=== PATIENT | female | born 1975 | race American Indian/Alaskan Native ===

== ENCOUNTER 2021-11-03 22:07 | Emergency (ER) | payer BC, OTHER ==
[2021-11-03] MEDS ORDERED: KETOROLAC 30 MG/1 ML INJ IV ONE (22:15)
--- NOTE | 2021-11-03 22:18 | Emergency Department Report ---
ED General Adult HPI - General Stated complaint: MILAD LATERAL LEG PAIN Time Seen by Provider: 11/03/21 22:14 - History of Present Illness Initial comments: Patient presents by EMS secondary to right leg pain. She states that she started having right leg pain today in the medial aspect of the thigh. This is just proximal to the knee. This is different than what she has had from her legs before. She describes this as a tightness and cramping sensation. She reported it was severe. She tried to stand up and that made the pain worse. She called an ambulance because she thought that there was something wrong. Patient mitts that she has had problems with her legs before. She has been tested for multiple sclerosis. She was treated for fibromyalgia. She states that she really has not been having problems in a while until today. She does admit that she was out at a dinner today. She does not remember hurting herself or injuring her leg in any way. Patient also states that she just has not felt well. She states she just does not feel good and feels like there is something wrong. She has had problems with potassium before. She is never had a DVT or PE. There is no family history of DVT. - Related Data Previous Rx's Medication Instructions Recorded Last Taken Type metFORMIN [Glucophage] 500 mg PO BID #20 tablet 09/14/13 Unknown Rx HYDROcodone/APAP 5-325 [[place] 1 each PO Q6HR PRN #14 tablet 09/20/14 Unknown Rx 5-325 mg TAB] Metaxalone [Skelaxin] 800 mg PO TID #9 tablet 11/04/21 Unknown Rx Allergies Allergy/AdvReac Type Severity Reaction Status Date / Time No Known Allergies Allergy Unverified 09/14/13 08:41 ED Review of Systems ROS: Stated complaint: MILAD LATERAL LEG PAIN Other details as noted in HPI Comment: All other systems reviewed and negative Constitutional: denies: fever Eyes: denies: eye pain ENT: denies: throat pain Respiratory: denies: cough Cardiovascular: denies: chest pain Endocrine: denies: unexplained weight loss Gastrointestinal: denies: abdominal pain Genitourinary: denies: dysuria Musculoskeletal: denies: back pain Skin: denies: rash Neurological: denies: headache Hematological/Lymphatic: denies: easy bruising ED Past Medical Hx - Past Medical History Hx Hypertension: Yes Hx Diabetes: Yes - Surgical History Hx Cholecystectomy: Yes - Family History Family history: hypertension - Social History Smoking Status: Never Smoker Substance Use Type: None - Medications Home Medications: Home Medications Medication Instructions Recorded Confirmed Last Taken Type metFORMIN [Glucophage] 500 mg PO BID #20 tablet 09/14/13 Unknown Rx HYDROcodone/APAP 5-325 [[place] 1 each PO Q6HR PRN #14 tablet 09/20/14 Unknown Rx 5-325 mg TAB] Metaxalone [Skelaxin] 800 mg PO TID #9 tablet 11/04/21 Unknown Rx ED Physical Exam - General Limitations: No Limitations, Other (Pulse ox noted and normal per EMS) General appearance: alert, in no apparent distress, anxious - Head Head exam: Present: atraumatic, normocephalic - Eye Eye exam: Present: normal appearance, EOMI. Absent: scleral icterus - ENT ENT exam: Present: normal orophraynx, normal external ear exam - Neck Neck exam: Present: normal inspection. Absent: meningismus - Respiratory Respiratory exam: Present: normal lung sounds bilaterally. Absent: respiratory distress - Cardiovascular Cardiovascular Exam: Present: regular rate, normal rhythm - GI/Abdominal GI/Abdominal exam: Present: soft. Absent: tenderness - Extremities Exam Extremities exam: Present: normal capillary refill, other (Tenderness along the medial aspect of the right distal thigh. No edema.). Absent: calf tenderness - Back Exam Back exam: Absent: CVA tenderness (R), CVA tenderness (L) - Neurological Exam Neurological exam: Present: alert, oriented X3, CN II-XII intact. Absent: motor sensory deficit - Psychiatric Psychiatric exam: Present: normal mood, anxious - Skin Skin exam: Present: warm, dry ED Course Vital Signs 11/03/21 11/03/21 23:51 23:53 Pulse Rate 98 H Respiratory 18 Rate Blood Pressure 139/87 [Left] O2 Sat by Pulse 97 97 Oximetry - Reevaluation(s) Reevaluation #1: 11/03/21 22:17 EMS was met. Labs were ordered. Reevaluation #2: 11/04/21 00:16 Labs are noted and the patient was discharged. ED Medical Decision Making - Lab Data Result diagrams: 11/03/21 23:05 11/03/21 23:05 - Medical Decision Making Patient presented secondary to right leg pain but had myriad other complaints and symptoms that were subacute to chronic. Patient did not have any profound electrolyte derangements to account for pain. She had no DVT risk factor. Well score was low. D-dimer was negative. I do not believe requires ultrasound. She did not have chest pain or dyspnea. There is no hypoxia. I am not concerned for pulmonary embolism. She was treated symptomatically and referred for outpatient evaluation. Critical Care Time: No Critical care attestation.: If time is entered above; I have spent that time in minutes in the direct care of this critically ill patient, excluding procedure time. ED Disposition Clinical Impression: Right leg pain Disposition: HOME / SELF CARE / HOMELESS Is pt being admited?: No Condition: Stable Instructions: How to Use Cold Therapy, Pain Without a Known Cause Additional Instructions: Drink plenty water. Return for problems. Follow-up with your regular doctor through [facility]. Continue home medication. Prescriptions: Metaxalone [Skelaxin] 800 mg PO TID #9 tablet Referrals: PRIMARY [facility] [Referring] - 3-5 Days
[2021-11-03 23:25] LABS: Hematocrit 42.5 % (30.3-42.9); Mean Corpuscular HGB Conc 33 % (30-34); Mean Corpuscular Volume 90 fl (79-97); Platelet Count 354 K/mm3 (140-440); Red Blood Count 4.72 M/mm3 (3.65-5.03); Red Cell Distribution Width 12.7 % (13.2-15.2)
[2021-11-03 23:42] LABS: BUN/Creatinine Ratio 16; Blood Urea Nitrogen 13 mg/dL (7-17); Hemolysis Index 27
[2021-11-04 00:52] VITALS: BP 135/62
== END 2021-11-04 00:42 | disposition home or self-care (01) ==
LOC: ED 22:07
DX: M79.604 Pain in right leg (principal); M79.605 Pain in left leg; I10 Essential (primary) hypertension; E11.9 Type 2 diabetes mellitus without complications; Z79.899 Other long term (current) drug therapy
CPT/HCPCS: 36415; 80048; 83735; 85027; 85379; 96374; 99284; J1885